=== PATIENT | male | born 1985 | race Caucasian/White ===

== ENCOUNTER 2020-09-12 18:35 | Emergency (ER) | payer OTHER ==
[2020-09-12 18:43] VITALS: TEMP 99.4; BMI 33.4
[2020-09-12] MEDS ORDERED: LACTATED RINGERS SOLUTION 1000 ML INFUS.BAG IV ONE (19:34)
[2020-09-12 19:56] LABS: BASO % 0.7 % (0-2.0); EOS % 0.9 % (0-4.5); HEMATOCRIT 40.4 % (35.4-49); LYMPH % 15.3 % (8-40); MCH 31.7 pg (25.7-33.7); MCHC 34.6 g/dl (32.0-35.9); MEAN CELL VOLUME 91.6 fl (80-96); MEAN PLT VOLUME 8.3 fl (7.5-11.1); NEUT % 78.1 % (42.8-82.8); PLATELET COUNT 240 K/MM3 (134-434); RBC 4.41 M/mm3 (4.00-5.60); RDW 13.1 % (11.9-15.9); WHITE BLOOD COUNT 9.8 K/mm3 (4.0-10.0)
[2020-09-12 20:26] LABS: CHLORIDE 103 mmol/L (98-107); POTASSIUM 3.7 mmol/L (3.5-5.1); SODIUM 136 mmol/L (136-145)
[2020-09-12 20:28] LABS: CALCIUM 9.1 mg/dL (8.5-10.1)
[2020-09-12 20:29] LABS: ALBUMIN 4.1 g/dl (3.4-5.0); ANION GAP 7 MMOL/L (8-16); BLOOD UREA NITROGEN 10.2 mg/dL (7-18); CO2 27 mmol/L (21-32); GLUCOSE,RANDOM 144 mg/dL (74-106)
[2020-09-12 20:33] LABS: CREATININE 1.2 mg/dL (0.55-1.3); SGOT/AST 95 U/L (15-37); SGPT/ALT 173 U/L (13-61)
[2020-09-12 20:34] LABS: BILIRUBIN,TOTAL 0.5 mg/dL (0.2-1); TOT PROT 7.9 g/dl (6.4-8.2)
[2020-09-12 20:35] LABS: ALK PHOS 94 U/L (45-117)
[2020-09-13 00:21] VITALS: BP 131/72; PULSE 80
[2020-09-13 01:19] LABS: URINE BARBITURATES NEGATIVE ng/ml (CUTOFF=200); URINE BENZODIAZEPINES NEGATIVE ng/ml (CUTOFF=200)
[2020-09-13 01:20] LABS: COCAINE, UR NEGATIVE ng/ml (CUTOFF=300); METHADONE, UR NEGATIVE ng/ml (CUTOFF=300); OPIATES, URI NEGATIVE ng/ml (CUTOFF=300); PHENCYCLIDINE,URINE NEGATIVE ng/ml (CUTOFF=25)
[2020-09-13 01:26] LABS: URINE AMPHETAMINES NEGATIVE ng/ml (CUTOFF=500)
== END 2020-09-13 01:58 | disposition home or self-care (01) ==
LOC: JER 18:35
DX: F12.90 Cannabis use, unspecified, uncomplicated (principal); R41.0 Disorientation, unspecified
CPT/HCPCS: 36415; 71046-TC-FY; 80053; 80307; 82550; 82553; 85025; 93005; 93010; 99285-25